=== PATIENT | female | born 1945 | race Caucasian/White ===

== ENCOUNTER 2020-08-03 14:12 | Inpatient (IN) | payer OTHER ==
[~2020-08-03] VITALS: Ht 165.1 cm; Wt 47.4 kg
[2020-08-03] MEDS ORDERED: COLACE100 MG PO (16:17)
[2020-08-03] MEDS ORDERED: CYMBALTA60 MG PO (16:18)
[2020-08-03] MEDS ORDERED: LIDODERM1 EACH T (16:19)
[2020-08-03] MEDS ORDERED: ZESTRIL2.5 MG PO (16:20)
[2020-08-03] MEDS ORDERED: PROTONIX TR40 MG PO (16:21)
[2020-08-03] MEDS ORDERED: MELADOX NATURAL3 MG PO (16:21)
[2020-08-03] MEDS ORDERED: SENNA8.6 MG PO (16:22)
[2020-08-03] MEDS ORDERED: TAB-A-VITE TA400 MC1 PO (16:25)
[2020-08-03] MEDS ORDERED: VITAMIN D-40010 MCG PO (16:26)
[2020-08-03] MEDS ORDERED: BIOFREEZE118 ML T (16:28)
[2020-08-03] MEDS ORDERED: OXYGEN NAS (16:29)
[2020-08-03] MEDS ORDERED: PULMICORT RES0.25 M1 INH (16:29)
[2020-08-03] MEDS ORDERED: TYLENOL325 M2 PO (16:30)
[2020-08-03] MEDS ORDERED: KLONOPIN1 M1 PO (16:31)
[2020-08-03] MEDS ORDERED: IBU800 MG PO (16:31)
[2020-08-03] MEDS ORDERED: Ipratropium Brom3 ML INH (16:33)
[2020-08-03] MEDS ORDERED: MILK OF MA400 MG/5 M PO (16:33)
[2020-08-03 17:41] VITALS: BP 168/70
[2020-08-03 19:08] LABS: BILIRUBIN Negative (Negative); BLOOD Trace-Intact (Negative); CLARITY Clear (Clear); COLOR Yellow (Yellow); GLUCOSE Negative (Negative); KETONE Trace (Negative); LEUKO ESTERASE 1+ (Negative); NITRITE Negative (Negative)
[2020-08-03 19:15] LABS: RBC 0-2 rbc/hpf (0-2); WBC 16-20 wbc/hpf (0-5)
[2020-08-03 19:16] LABS: BACTERIA TRACE
[2020-08-03 20:00] VITALS: BP 168/7
[2020-08-03 20:49] LABS: BASO % 0.4 % (0.0-1.0); EOS # 0.1 10*3/uL (0.0-0.4); EOS % 2.3 % (1.0-4.0); HEMATOCRIT 33.1 % (37.0-47.0); LYMPH # 1.5 10*3/uL (1.3-4.4); LYMPH % 31.1 % (27.0-41.0); MEAN CELL VOLUME 95.1 fl (81.0-99.0); MEAN CORPUSCULAR HGB 27.9 pg (27.0-31.0); MEAN CORPUSCULAR HGB CONC 29.3 g/dl (33.0-37.0); MEAN PLATELET VOLUME 9.5 fl (9.6-12.3); MONO # 0.4 10*3/uL (0.1-1.0); NEUT # 2.7 10*3/uL (2.3-7.9); NEUT % 56.8 % (47.0-73.0); PLATELET COUNT AUTOMATED 163 10*3/uL (130-400); RED BLOOD COUNT 3.48 10*6/uL (4.10-5.10); RED CELL DISTRI WIDTH 13.4 % (0-14.5); WHITE BLOOD COUNT 4.7 10*3/uL (4.8-10.8)
[2020-08-03 21:04] LABS: ALBUMIN 3.5 gm/dl (3.1-4.5); CREATININE 1.15 mg/dL (0.55-1.02); POTASSIUM 3.7 mmol/L (3.5-5.1); TOTAL PROTEIN 7.6 gm/dL (6.4-8.2)
[2020-08-04 07:13] LABS: THYROID STIM HORMONE (HS) 2.84 uIU/ml (0.358-4.75)
[2020-08-04 07:39] VITALS: BP 120/62
[2020-08-04 07:41] LABS: VITAMIN D, 25-HYDROXY 92.2 ng/mL (30-100)
[2020-08-04 20:00] VITALS: BP 114/58
[2020-08-05 06:55] VITALS: BP 133/72
[2020-08-05 07:37] VITALS: BP 133/72
[2020-08-05 19:58] VITALS: BP 139/73
[2020-08-06 07:26] VITALS: BP 125/67
[2020-08-06 20:00] VITALS: BP 146/82
[2020-08-07 07:49] VITALS: BP 138/68
[2020-08-07 10:35] LABS: BASO % 0.6 % (0.0-1.0); EOS # 0.2 10*3/uL (0.0-0.4); MEAN CELL VOLUME 96.4 fl (81.0-99.0); MEAN CORPUSCULAR HGB 28.2 pg (27.0-31.0); MEAN CORPUSCULAR HGB CONC 29.3 g/dl (33.0-37.0); MEAN PLATELET VOLUME 10.4 fl (9.6-12.3); MONO # 0.4 10*3/uL (0.1-1.0); MONO % 11.1 % (3.0-9.0); PLATELET COUNT AUTOMATED 151 10*3/uL (130-400); RED CELL DISTRI WIDTH 13.7 % (0-14.5); WHITE BLOOD COUNT 3.6 10*3/uL (4.8-10.8)
[2020-08-07 10:50] LABS: ALBUMIN 2.8 gm/dl (3.1-4.5); ALKALINE PHOSPHATASE 68 U/L (45-117); BUN 17 mg/dl (7-24); CHLORIDE 105 mmol/L (98-107); CREATININE 0.95 mg/dL (0.55-1.02); SGOT/AST 23 IU/L (3-35); SGPT/ALT 28 U/L (12-78); SODIUM 144 mmol/L (136-145); TOTAL PROTEIN 6.1 gm/dL (6.4-8.2)
[2020-08-07 20:00] VITALS: BP 140/88
[2020-08-08 01:06] LABS: CLONAZEPAM (KLONOPIN),SERUM 23 ng/mL (20-70)
[2020-08-08 06:27] LABS: BASO % 0.8 % (0.0-1.0); EOS # 0.2 10*3/uL (0.0-0.4); HEMATOCRIT 29.3 % (37.0-47.0); LYMPH # 1.3 10*3/uL (1.3-4.4); LYMPH % 34.3 % (27.0-41.0); MEAN CELL VOLUME 95.1 fl (81.0-99.0); MEAN CORPUSCULAR HGB 27.6 pg (27.0-31.0); MEAN PLATELET VOLUME 10.3 fl (9.6-12.3); MONO # 0.5 10*3/uL (0.1-1.0); NEUT # 1.8 10*3/uL (2.3-7.9); NEUT % 46.9 % (47.0-73.0); PLATELET COUNT AUTOMATED 155 10*3/uL (130-400); RED BLOOD COUNT 3.08 10*6/uL (4.10-5.10); RED CELL DISTRI WIDTH 13.6 % (0-14.5); WHITE BLOOD COUNT 3.8 10*3/uL (4.8-10.8)
[2020-08-08 08:00] VITALS: BP 134/73
[2020-08-08 20:00] VITALS: BP 134/73; BP 138/68
[2020-08-09 07:24] VITALS: BP 135/69
[2020-08-09 20:00] VITALS: BP 146/80
[2020-08-10 07:19] VITALS: BP 135/72
[2020-08-10 20:00] VITALS: BP 155/78
[2020-08-11 07:48] VITALS: BP 142/74
[2020-08-11 20:00] VITALS: BP 142/62
[2020-08-12 06:34] VITALS: BP 143/75
[2020-08-12 20:00] VITALS: BP 139/88
[2020-08-13 07:46] VITALS: BP 130/86
[2020-08-13 19:30] VITALS: BP 151/72
[2020-08-14 07:39] VITALS: BP 119/51
[2020-08-14 20:00] VITALS: BP 136/61
[2020-08-15 07:41] VITALS: BP 107/61
[2020-08-15 10:22] LABS: BASO % 0.5 % (0.0-1.0); EOS # 0.1 10*3/uL (0.0-0.4); EOS % 3.5 % (1.0-4.0); HEMATOCRIT 29.9 % (37.0-47.0); LYMPH # 1.1 10*3/uL (1.3-4.4); LYMPH % 27.9 % (27.0-41.0); MEAN CELL VOLUME 95.8 fl (81.0-99.0); MEAN CORPUSCULAR HGB 28.2 pg (27.0-31.0); MEAN CORPUSCULAR HGB CONC 29.4 g/dl (33.0-37.0); MEAN PLATELET VOLUME 10.2 fl (9.6-12.3); MONO # 0.5 10*3/uL (0.1-1.0); MONO % 12.2 % (3.0-9.0); NEUT # 2.2 10*3/uL (2.3-7.9); NEUT % 55.7 % (47.0-73.0); PLATELET COUNT AUTOMATED 177 10*3/uL (130-400); RED BLOOD COUNT 3.12 10*6/uL (4.10-5.10); RED CELL DISTRI WIDTH 14.1 % (0-14.5)
[2020-08-15 10:49] LABS: ALBUMIN 3.1 gm/dl (3.1-4.5); ALKALINE PHOSPHATASE 68 U/L (45-117); BUN 22 mg/dl (7-24); CHLORIDE 106 mmol/L (98-107); CREATININE 0.81 mg/dL (0.55-1.02); POTASSIUM 4.1 mmol/L (3.5-5.1); SGOT/AST 22 IU/L (3-35); SGPT/ALT 26 U/L (12-78); SODIUM 142 mmol/L (136-145); TOTAL PROTEIN 6.7 gm/dL (6.4-8.2)
[2020-08-15 20:00] VITALS: BP 139/56
[2020-08-16 08:00] VITALS: BP 129/69
[2020-08-16] MEDS ORDERED: CLONAZEPAM0.5 M2 PO (09:43)
[2020-08-16] MEDS ORDERED: RISPERIDONE1 MG PO (09:43)
[2020-08-16] MEDS ORDERED: HYDROXYZINE HCL25 MG PO (09:43)
[2020-08-16] MEDS ORDERED: MEMANTINE HCL10 MG PO (09:43)
[2020-08-16] MEDS ORDERED: DULOXETINE HCL60 MG PO (09:43)
[2020-08-16] MEDS ORDERED: RIVASTIGMINE1 EAC2 T (09:43)
[2020-08-16] MEDS ORDERED: Lidoderm 5% Patch T (09:43)
[2020-08-16 20:00] VITALS: BP 140/67
[2020-08-17 07:19] VITALS: BP 133/70
[2020-08-17 19:55] VITALS: BP 145/78
[2020-08-18 07:29] VITALS: BP 135/71
[2020-08-18 20:00] VITALS: BP 140/80
[2020-08-19 07:34] VITALS: BP 154/79
[2020-08-19 20:00] VITALS: BP 147/81
[2020-08-20 07:47] VITALS: BP 130/64
[2020-08-20 20:00] VITALS: BP 139/76
[2020-08-21 07:41] VITALS: BP 149/65
== END 2020-08-21 13:01 | DRG 885 ==
LOC: 3N 14:12
PROVIDERS: Counselor Professional; Internal Medicine; Psychiatry & Neurology Psychiatry; Student in an Organized Health Care Education/Training Program; ADMIT Psychiatry & Neurology Psychiatry; ATTEND Psychiatry & Neurology Psychiatry
DX: F33.3 Major depressive disorder, recurrent, severe with psychotic symptoms (principal); E43 Unspecified severe protein-calorie malnutrition; J96.11 Chronic respiratory failure with hypoxia; N39.0 Urinary tract infection, site not specified; Z68.1 Body mass index [BMI] 19.9 or less, adult; F02.80 Dementia in other diseases classified elsewhere, unspecified severity, without behavioral disturbance, psychotic disturbance, mood disturbance, and anxiety; G30.9 Alzheimer's disease, unspecified; F41.9 Anxiety disorder, unspecified; D53.9 Nutritional anemia, unspecified; Z20.822 Contact with and (suspected) exposure to COVID-19; J44.9 Chronic obstructive pulmonary disease, unspecified; K21.9 Gastro-esophageal reflux disease without esophagitis; I10 Essential (primary) hypertension; G62.9 Polyneuropathy, unspecified; M89.49 Other hypertrophic osteoarthropathy, multiple sites; E55.9 Vitamin D deficiency, unspecified; K59.00 Constipation, unspecified; H81.10 Benign paroxysmal vertigo, unspecified ear; D72.829 Elevated white blood cell count, unspecified; R73.9 Hyperglycemia, unspecified; Z86.16 Personal history of COVID-19; Z87.81 Personal history of (healed) traumatic fracture; Z99.81 Dependence on supplemental oxygen; Z79.899 Other long term (current) drug therapy